=== PATIENT | female | born 1940 | race Caucasian/White ===

== ENCOUNTER → 2016-07-11 | Outpatient (REF) | LOC: ZLAB.WCH 18:05 | DX: Z01.89 Encounter for other specified special examinations (principal) ==

== ENCOUNTER 2018-10-23 18:31 | Emergency (ER) | payer SELFPAY ==
[~2018-10-23] VITALS: Ht 154.9 cm; Wt 47.3 kg
[2018-10-23 18:47] VITALS: BP 178/86; TEMP 98.2
[2018-10-23] MEDS ORDERED: NORVASC 5MG5 MG/TAB PO (18:52)
[2018-10-23] MEDS ORDERED: PRINIVIL40 MG PO (18:52)
[2018-10-23 23:11] VITALS: PULSE 72
== END 2018-10-23 23:11 | disposition home or self-care (01) ==
LOC: COL.ER 18:31
DX: S40.012A Contusion of left shoulder, initial encounter (principal); S70.02XA Contusion of left hip, initial encounter; S00.83XA Contusion of other part of head, initial encounter; I10 Essential (primary) hypertension; R40.2412 Glasgow coma scale score 13-15, at arrival to emergency department; W18.39XA Other fall on same level, initial encounter; Y92.512 Supermarket, store or market as the place of occurrence of the external cause

== ENCOUNTER 2020-09-11 13:32 | Emergency (ER) | payer MEDICARE ==
[~2020-09-11] VITALS: Ht 149.9 cm; Wt 46.8 kg
[~2020-09-11 13:32] MED LIST: NORVASC 5MG5 MG/TAB PO; PRINIVIL40 MG PO
[2020-09-11 13:35] VITALS: TEMP 98.2
[2020-09-11] MEDS ORDERED: ULTRAM 50MG TAB50 MG PO (13:48)
[2020-09-11] MEDS ORDERED: B-12 500 MCG PO (13:49)
[2020-09-11] MEDS ORDERED: PRAVACHOL10 MG PO (13:50)
[2020-09-11] MEDS ORDERED: VITAMIN D250 MCG PO (13:50)
[2020-09-11] MEDS ORDERED: LASIX 20MG TABL20 MG PO (13:51)
[2020-09-11] MEDS ORDERED: STOOL SOFTENER100 M2 PO (13:52)
[2020-09-11] MEDS ORDERED: CLARITIN LIQUI-10 MG PO (13:52)
[2020-09-11] MEDS ORDERED: VITAMIN C500 MG PO (13:52)
[2020-09-11 15:17] LABS: BASO # 0.1 (0.0-0.2); BASO % 0.9 % (0.0-2.0); EOS # 0.1 (0.0-0.7); EOS % 1.2 % (0-4.0); GRAN # 4.2 (1.4-6.5); GRAN % 61.2 % (42.2-75.2); HEMATOCRIT 39.2 % (37.0-47.0); HEMOGLOBIN 12.7 g/dl (12.5-16.0); LYMPH # 1.9 (1.2-3.4); LYMPH % 27.6 % (20.0-51.0); MEAN CELL VOLUME 97 fl (80.0-100.0); MEAN CORPUSCULAR HEMOGLOBIN 31 pg (27.0-31.0); MEAN CORPUSCULAR HGB CONC 32 g/dl (33.0-37.0); MEAN PLATELET VOLUME 10.1 fl (7.4-10.4); MONO # 0.6 (0.1-0.6); PLATELET COUNT 221 K/mm3 (130-400); RED BLOOD COUNT 4.05 M/mm3 (4.10-5.30); REDCELL DISTRIBUTION WIDTH-CV 14.6 % (11.5-14.5)
[2020-09-11 15:29] LABS: ALANINE AMINOTRANSFERASE 18 U/L (4-34); ALBUMIN 4.6 gm/dL (3.5-5.0); ALKALINE PHOSPHATASE 70 U/L (50-136); ANION GAP 7 mmol/L (7-16); AST,SGOT 35 U/L (15-37); BILIRUBIN,TOTAL 0.3 mg/dL (0.0-1.0); BLOOD UREA NITROGEN 25 mg/dL (7-17); CALCIUM 9.9 mg/dL (8.4-10.2); CARBON DIOXIDE 30 mmol/L (22-30); CHLORIDE 105 mmol/L (98-107); GLUCOSE 95 mg/dL (74-106); POTASSIUM 4.2 mmol/L (3.4-5.0); SODIUM 142 mmol/L (137-145); TOTAL PROTEIN 8.6 gm/dL (6.4-8.2)
[2020-09-11 15:41] LABS: TROPONIN-I < 0.012 ng/mL (0.000-0.035)
[2020-09-11] MEDS ORDERED: NORVASC 5MG5 MG/TAB PO (16:35)
[2020-09-11 17:08] VITALS: BP 113/71; PULSE 63
== END 2020-09-11 17:08 | disposition home or self-care (01) ==
LOC: COL.ER 13:32
PROVIDERS: Personal Emergency Response Attendant
DX: I10 Essential (primary) hypertension (principal); Z87.891 Personal history of nicotine dependence; Z79.899 Other long term (current) drug therapy

== ENCOUNTER → 2020-09-17 | Outpatient (CLI) | payer MEDICARE ==
[~2020-09-17] MED LIST changes: +B-12 500 MCG PO; +CLARITIN LIQUI-10 MG PO; +LASIX 20MG TABL20 MG PO; +PRAVACHOL10 MG PO; +STOOL SOFTENER100 M2 PO; +ULTRAM 50MG TAB50 MG PO; +VITAMIN C500 MG PO; +VITAMIN D250 MCG PO
== END ==
LOC: COL.RAD 11:53
DX: S09.90XA Unspecified injury of head, initial encounter (principal); W19.XXXA Unspecified fall, initial encounter; G31.9 Degenerative disease of nervous system, unspecified; I67.82 Cerebral ischemia

== ENCOUNTER → 2020-11-09 | Outpatient (CLI) | payer MEDICARE | LOC: COL.RAD 10:14 | DX: F03.90 Unspecified dementia, unspecified severity, without behavioral disturbance, psychotic disturbance, mood disturbance, and anxiety (principal); G31.9 Degenerative disease of nervous system, unspecified; I67.82 Cerebral ischemia; R93.0 Abnormal findings on diagnostic imaging of skull and head, not elsewhere classified; Z86.73 Personal history of transient ischemic attack (TIA), and cerebral infarction without residual deficits ==

== ENCOUNTER 2022-07-18 13:35 | Emergency (ER) | payer MEDICARE ==
[~2022-07-18] VITALS: Ht 152.4 cm; Wt 42.3 kg
[2022-07-18 13:37] VITALS: TEMP 97.7
[2022-07-18] MEDS ORDERED: SENNA8.8 MG/5 M PO (13:52)
[2022-07-18] MEDS ORDERED: ASPIRIN E.C. 8181 MG PO (13:52)
[2022-07-18] MEDS ORDERED: XALATAN EYE DROPS OU (13:52)
[2022-07-18] MEDS ORDERED: BENADRYL25 M2 PO (13:52)
[2022-07-18] MEDS ORDERED: GLYCERIN S1 SUPP.REC RC (16:44)
[2022-07-18 16:52] VITALS: BP 120/66; PULSE 80
== END 2022-07-18 17:13 | disposition home or self-care (01) ==
LOC: COL.ER 13:35
DX: K59.00 Constipation, unspecified (principal)